=== PATIENT | male | born 1955 | race Caucasian/White ===

== ENCOUNTER 2020-08-09 17:00 | Observation (INO) | payer OTHER, SELFPAY ==
[2020-08-09] VITALS (16 sets, daily range): BP systolic 133–168; BP diastolic 75–100; PULSE 57–68; RESP 10–20; TEMP 36.6–36.9; O2SAT 93–100; BMI 33.1
--- NOTE | ~2020-08-09 | XR_ITS ---
XR chest 1V portable DATE: 08/09/2020 18:00 INDICATION: Hypertension. Episode of confusion. TECHNIQUE: 08/09/2020 portable AP chest at 1802 hours COMPARISON: None FINDINGS: Heart size is likely within normal limits considering magnification associated with AP proj ection. No pulmonary infiltrate or consolidation, pleural effusion or pulmonary vascular congestion or pneumo thorax is detected. Mild thoracic scoliosis and degenerative change. IMPRESSION: No active cardiopulmonary disease Reviewed, dictated and finalized at location A. ETRICS/GYNECOLOGY NURSE
--- NOTE | ~2020-08-09 | US_ITS ---
EXAMINATION: US carotid duplex BI EXAM DATE: 08/10/2020 12:49 INDICATION: Transient ischemic attack. Altered mental status. Hypertension. TECHNIQUE: Grayscale, color and pulsed Doppler images of the cervical carotid arteries were obtained . The degree of vessel stenosis is placed in one of the following categories: normal, <50% stenosis, 50-69% stenosis, >=70% stenosis but less than near-occlusion, near-occlusion, or occlusion. Note that percent stenosis relative to normal distal artery lumen diameter is indirectly measured from velocit y measurements as described by Harvey, et al. Radiology 2003; 229:340-346. There is no prior study fo r comparison. FINDINGS: RIGHT SIDE: Right common carotid artery peak systolic velocity (PSV in cm/s): 77 Right bulb/internal carotid artery peak systolic velocity (PSV in cm/s): 81 Right internal carotid artery end diastolic velocity (EDV in cm/s): 19 Right ICA/CCA peak systolic ratio: 1.1 Right external carotid artery peak systolic velocity (PSV in cm/s): 120 Right vertebral artery antegrade flow: yes There is no focal plaque identified. LEFT SIDE: Left common carotid artery peak systolic velocity (PSV in cm/s): 79 Left bulb/internal carotid artery peak systolic velocity (PSV in cm/s): 98 Left internal carotid artery end diastolic velocity (EDV in cm/s): 14 Left ICA/CCA peak systolic ratio: 1.2 Left external carotid artery peak systolic velocity (PSV in cm/s): 98 Left vertebral artery antegrade flow: yes There is no focal plaque identified. IMPRESSION: 1. Normal right internal carotid artery. 2. Normal left internal carotid artery. Reviewed, dictated and finalized at location B. ER REPAIRMAN
--- NOTE | ~2020-08-09 | MR_ITS ---
EXAMINATION: MR brain/brain stem wo/w con EXAM DATE: 08/10/2020 12:47 INDICATION: Transient ischemic attack. Altered mental status. Hypertension. TECHNIQUE: Magnetic resonance imaging (MRI) of the brain/brain stem obtained without contrast. Sagit mustapha T1, axial diffusion, gradient echo (T2*), T1, T2, FLAIR sequences obtained. Patient was then inj ected with 20 cc intravenous Multihance contrast. Axial and coronal postcontrast T1 weighted sequence s obtained. Correlation is made to head CT from 08/09/2020. FINDINGS: There are no areas of restricted diffusion to suggest acute infarction. There is no acute hemorrhage seen on the T2*, a hemosiderin sensitive sequence. No intraparenchymal brain mass. The ve ntricles are normal in size. There are no extra-axial collections. Flow voids are seen in the cereb ral arteries on the T2-weighted sequences consistent with their expected patency. The orbits are unr emarkable. Soft tissue is unremarkable. IMPRESSION: 1. Unremarkable brain MRI examination. Reviewed, dictated and finalized at location B. ENT DEVELOPMENT SPECIALIST
--- NOTE | ~2020-08-09 | CT_ITS ---
EXAMINATION: CT brain wo con INDICATION: Altered mental status, hypertension COMPARISON: None TECHNIQUE: Standard unenhanced head CT. The dose-length product (DLP) was 605.33 mGy-cm. The mA was a djusted according to patient size. Iterative reconstruction technique was employed. FINDINGS: There is no intracranial hemorrhage, acute infarction, or abnormal mass lesion. The ventric les are normal. There is no abnormal mass effect or midline shift. The epstein-white matter differentiat ion is normal. The basal cisterns are patent. The orbits are normal. The paranasal sinuses, mastoids and calvarium are normal. IMPRESSION: 1. No acute intracranial abnormality. Reviewed, dictated and finalized at location A. DISPATCHER
--- NOTE | 2020-08-09 17:24 | ECG_ITS ---
Measurements Intervals [place] Rate: 65 P: 45 SD: 201 QRS: -15 QRSD: 89 T: 12 QT: 382 QTc: 398 Interpretive Statements SINUS RHYTHM BORDERLINE AV CONDUCTION DELAY DELAYED PRECORDIAL R/S TRANSITION BORDERLINE ECG Electronically Signed On 08-10-2020 13:55:41 WEB ANALYST by Jono Razo D.O.
[2020-08-09 17:34] LABS: Basophils Percent Auto 0.2 % (0.2-1.2); Eosinophils Percent Auto 0.3 % (0-4.4); Hemoglobin 18.2 g/dL (14.0-18.0); Immature Granulocyte Absolute 0.02 K/mm3 (0.00-0.031); Immature Granulocyte Percent A 0.2 % (0-0.5); Lymphocytes Absolute Auto 1.25 K/mm3 (0.9-3.2); Lymphocytes Percent Auto 13.4 % (18.3-44.2); Mean Corpuscular Hemoglobin 32.3 pg (26-34); Mean Corpuscular Volume 92.4 fl (80-100); Mean Platelet Volume 9.5 fl (7.4-10.4); Monocytes Absolute Auto 0.6 K/mm3 (0.1-0.6); Monocytes Percent Auto 6.3 % (2.6-8.5); Neutrophils Absolute Auto 7.4 K/mm3 (1.3-6.7); Neutrophils Percent Auto 79.6 % (45.5-73.1); Platelet Count Result 197 k/mm3 (150-375); Red Blood Count 5.63 M/mm3 (4.6-6.20); Red Cell Distribution Width 12.7 % (11.5-14.5); White Blood Count 9.3 K/mm3 (4.5-10.0)
[2020-08-09 17:46] LABS: Anion Gap 10 mmol/L (8-16); Blood Urea Nitrogen 19 mg/dL (9-20); Calcium 9.5 mg/dL (8.4-10.2); Carbon Dioxide 32 mmol/L (22-30); Chloride 98 mmol/L (98-107); Estimated CRCL calculation 70 ml/min; Estimated Glomerular Filt Rate > 60; Glucose 116 mg/dL (75-110); Potassium 4.8 mmol/L (3.4-5.0); Sodium 140 mmol/L (137-145)
[2020-08-09 17:58] LABS: Troponin I < 0.012 ng/mL (0.000-0.034)
--- NOTE | 2020-08-09 19:17 | PC.NURSE ---
conveyor technician in room drawing patients blood at this time
--- NOTE | 2020-08-09 19:22 | ED.NEUROSD ---
HPI - Neuro Symptoms/Deficit General Chief Complaint: Neuro Symptoms/Deficit Stated Complaint: ams this morning at 1000 Time Seen by Provider: 08/09/20 18:02 Source: patient Mode of arrival: ambulatory Limitations: no limitations History of Present Illness HPI Narrative: Patient is 64 years old white male brought to the emergency room by his was telling me that patient was confused, keeps repeating the same thing again and again, keeps repeating his blood pressure again and again started at 10 AM lasted for about 4 to 5 hours then back to normal. Currently patient is asymptomatic, awake, alert oriented x4. Patient denies having similar symptoms. Patient denies any fever, chills, nausea, vomiting, diarrhea, chest pain, shortness of breath, headache, focal neuro deficit. Patient drinks alcohol daily, and his also a smoker Patient does not take aspirin, History of hypertension. Related Data Allergies Allergy/AdvReac Type Severity Reaction Status Date / Time No Known Allergies Allergy Verified 08/09/20 18:08 Review of Systems Review of Systems: Narrative: CONSTITUTIONAL: Denies fever, chills, or sweats. EYES: Denies visual changes, redness, or discharge. ENT: Denies rhinorrhea, congestion, sore throat, or otalgia. CARDIOVASCULAR: Denies chest pain, palpitations, or edema. RESPIRATORY: Denies cough or dyspnea. GASTROINTESTINAL: Denies abdominal pain, nausea, vomiting, or diarrhea. GENITOURINARY: Denies dysuria or hematuria. SKIN: Denies rash or itching. MUSCULOSKELETAL: Denies back pain, joint pain, or myalgia. NEUROLOGIC: Denies headache, numbness, or weakness. PSYCHIATRIC: Denies anxiety or depression. PMFSH Past Medical History Medical History (Updated 08/09/20 @ 19:26 by James Raymundo MD) Hypertension Social History Social History (Updated 08/09/20 @ 19:26 by James Raymundo MD) Social History: Patient smokes and drinks alcohol daily. Second hand tobacco smoke exposure: No Gender identity (if verbalized by the patient): Male Exam Narrative: Exam Narrative: General appearance: Well-developed, well-nourished Skin: Normal color Head: Normocephalic, nontraumatic Eyes: Clear conjunctiva ENT: Oropharynx normal, ears normal, nose normal Neck: Supple, nontender Chest and respiratory: Airway patent, no respiratory distress, no accessory muscle use Heart: Regular rate/rhythm Abdomen: Soft, nontender, no organomegaly, quiet bowel sounds Vascular: Normal peripheral pulses, normal capillary refill. Musculoskeletal: Normal range of motion, nontender back Neurologic: Alert and oriented ?3, COMMISSIONING SPECIALIST is normal as tested, no gross motor deficit Course Course Emergency Course: Resolved, currently asymptomatic Vital Signs Vital signs: Vital Signs Temperature 36.6 C 08/09/20 17:20 Pulse Rate 57 L 08/09/20 17:20 Respiratory Rate 14 08/09/20 17:20 Blood Pressure 168/100 H 08/09/20 17:20 Pulse Oximetry 98 08/09/20 17:20 Temperature 36.6 C 08/09/20 17:20 Pulse Rate 63 08/09/20 19:20 Respiratory Rate 17 08/09/20 19:20 Blood Pressure 133/83 08/09/20 19:20 Pulse Oximetry 97 08/09/20 19:20 MDM - Neuro Symptoms/Deficit MDM Narrative Medical decision making narrative: TIA is my concern. Labs, CT head, UA, chest x-ray ordered. Further plan to follow Differential Diagnosis Differential diagnosis: Likely transient cerebral ischemia and other (Memory disorder, alcoholism related symptoms) Lab Data Result diagrams: 08/09/20 17:27 08/09/20 17:27 Labs: Lab Results 08/09/20 08/09/20 08/09/20 Range/Units 17:27 17:27 17:27 WBC 9.3 (4.5-10.0) K/mm3 RBC 5.63 (4.6-6.20) M/
[2020-08-09 19:35] LABS: INR 0.9; Prothrombin Time 13.2 Seconds (11.1-14.7)
[2020-08-09] MEDS: ASPIRIN 81 MG CHEWABLE TABLET 324 MG PO (19:35)
[2020-08-09 19:36] LABS: Partial Thromboplastin Time 31.2 SECONDS (22.3-36.8)
[2020-08-09 20:11] LABS: Magnesium 2.5 mg/dL (1.6-2.3)
--- NOTE | 2020-08-09 20:18 | PM.IMHP ---
H&P: HPI History of Present Illness Date/Time: 08/09/20 20:18 Chief Complaint: Altered mental status Narrative: Ezequiel Howell is a 64 year old male past medical history of hypothyroidism, hypertension, and borderline diabetes, testosterone deficiency presents to the ED with complaints altered mental status. Patient was his normal state of health until he took a concoction of Wellbutrin and naltrexone which he got separately and combined. Patient was confused for 4-5 hours and his was concerned prompting him to the ED. He was aware that he was not being himself but is having difficulty explaining the specific events of the day. Of note patient drinks alcohol daily 1 beer or 1 glass of wine. He smokes 3-4 cigarettes like cigars not completely inhaling daily. Patient states he has never had any episodes like this before. He came to the ED because of his 's concern. In the ED:Labs were within normal limits, Mag was slightly elevated 2.5, hemoglobin elevated 18 secondary to testosterone. UDS was negative. Chest x-ray and CT head were negative. Patient was been for observation for neurology consult and stroke workup. Review of Systems Review of Systems: Narrative: Constitutional: No Fever, No Chills, No Night Sweats, No Fatigue, No Malaise ENT/Mouth: No Hearing Changes, No Ear Pain, No Nasal Congestion, No Sinus Pain, No Hoarseness, No sore throat, No Rhinorrhea, No Swallowing Difficulty Eyes: No Eye Pain, No Redness, No Vision Changes Cardiovascular: No Chest Pain, No Palpitations, No Dyspnea on Exertion, No Orthopnea, No Claudication, No Edema Respiratory: No Cough, No Sputum, No Wheezing, No Shortness of Breath Gastrointestinal: No Nausea, No Vomiting, No Diarrhea, No Constipation, No Abdominal Pain, No Heartburn, No Hematochezia, No Melena Genitourinary: No Dysuria, No Urinary Frequency, No Hematuria, No Urinary Incontinence, No Urgency Musculoskeletal: No Arthralgias, No Myalgias, No Joint Swelling, No Joint Stiffness, No Back Pain Skin: No Skin Lesions, No Pruritis, No Hair Changes Neuro: No Weakness, No Numbness, No Paresthesias, No Loss of Consciousness, No Syncope, No Dizziness, No Headache. Endorse some confusion and not being himself which has resolved. Psych: No Anxiety/Panic, No Depression, No Insomnia Heme: No Bruising, No Bleeding Lymph: No Adenopathy Endocrine: No Polyuria, No Polydipsia, No Temperature Intolerance [facility] Past Medical History Medical History (Updated 08/10/20 @ 03:34 by Fabiola Moctezuma DO) Borderline diabetes Hypertension Hypothyroidism Obesity (BMI 30.0-34.9) Testosterone deficiency Surgical History Surgical History (Updated 08/10/20 @ 03:29 by Fabiola Moctezuma DO) S/P ACL repair Family History Family History (Updated 08/10/20 @ 03:31 by Fabiola Moctezuma DO) Father Multiple myeloma Lung cancer Mother No problems noted. Social History Social History (Updated 08/10/20 @ 03:31 by Fabiola Moctezuma DO) Social History: Patient smokes and drinks alcohol daily. He states he drinks only 1 glass daily. Smokes but not completely inhales 3-4 cigarettes daily. 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
--- NOTE | 2020-08-09 20:35 | PC.NURSE ---
This patient, Ezequiel Howell, was admitted to 3 [facility] Surg Room 317-01. Patient/family oriented to hospital policies and general routines including ID bracelet, bed and alarms, visiting hours, pain management, procedures, bathroom and other care routines, personal items, smoking policy, room service/diet, and visiting hours. Information on how to activate the Rapid Response Team has been discussed. Patient/Family are encouraged to report perceived risks to care and to ask questions if they do not understand what they are told or what they should do.
[2020-08-09 20:53] LABS: Amphetamine Screen Urine Negative (Negative); Barbiturate Screen Urine Negative (Negative); Benzodiazepines Screen Urine Negative (Negative); Cannabinoid Screen Urine Negative (Negative); Cocaine Screen Urine Negative (Negative); Methadone Screen Urine Negative (Negative); Opiate Screen Urine Negative (Negative); Phencyclidine Screen Urine Negative (Negative)
[2020-08-10] VITALS: PULSE 61
[2020-08-10 04:00] VITALS: PULSE 58
[2020-08-10 05:44] VITALS: BP 143/86; PULSE 60; RESP 20; TEMP 36.1; O2SAT 100
[2020-08-10 06:16] LABS: Hemoglobin A1C 5.4 % (<5.7)
[2020-08-10 06:21] LABS: Cholesterol 214 mg/dL (0-200); HDL Direct 32 mg/dL; Triglycerides 165 mg/dL (<150)
[2020-08-10 06:32] LABS: LDL Cholesterol Direct 162 mg/dL
[2020-08-10 08:00] VITALS: PULSE 62
[2020-08-10] MEDS: THYROID 60 MG TABLET PO (08:43)
[2020-08-10] MEDS: ASPIRIN 81 MG CHEWABLE TABLET PO (08:43)
[2020-08-10 08:48] VITALS: BP 124/71
--- NOTE | 2020-08-10 10:10 | WPDNEURCNPN ---
Consult date: 08/10/20 HPI: Ezequiel Howell is a 64 year old male admitted to the hospital for the complaints of change in the mental status reportedly he was in his normal state of health up until when he took a core concoction of Wellbutrin and naltrexone separately and combine he was reportedly confused for 4 to 5 5 words his became concerned and brought him to the hospital he was having some difficulties explaining the specific events of the day with drinks alcohol daily 1 beer or glass of wine he smokes 3 to 4 cigarettes like cigars but not inhaling completely but he had never had such an episode in the past in the emergency room [facility] Past Medical History Medical History (Updated 08/10/20 @ 03:34 by Fabiola Moctezuma DO) Borderline diabetes Hypertension Hypothyroidism Obesity (BMI 30.0-34.9) Testosterone deficiency Surgical History Surgical History (Updated 08/10/20 @ 03:29 by Fabiola Moctezuma DO) S/P ACL repair Family History Family History (Updated 08/10/20 @ 03:31 by Fabiola Moctezuma DO) Father Multiple myeloma Lung cancer Mother No problems noted. Social History Social History (Updated 08/10/20 @ 03:31 by Fabiola Moctezuma DO) Social History: Patient smokes and drinks alcohol daily. He states he drinks only 1 glass daily. Smokes but not completely inhales 3-4 cigarettes daily. 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 Thyroid 60 mg DAILY 08/09/20 08/09/20 History bupropion HCl 100 mg PO DAILY 08/09/20 08/09/20 History metformin 500 mg DAILY 08/09/20 08/09/20 History metoprolol tartrate 25 mg HS 08/09/20 08/09/20 History naltrexone 9 mg PO DAILY 08/09/20 08/09/20 History testosterone cypionate 200 mg IM WEEKLY 08/09/20 08/09/20 History Allergies Allergy/AdvReac Type Severity Reaction Status Date / Time No Known Allergies Allergy Verified 08/10/20 01:39 Vital Signs Vital Signs - 24 hr 08/09/20 17:20 08/09/20 18:03 08/09/20 18:04 Temperature 36.6 C Pulse Rate 57 L 64 65 Respiratory Rate 14 14 15 Blood Pressure 168/100 H 156/91 H Pulse Oximetry 98 98 99 08/09/20 18:05 08/09/20 18:15 08/09/20 18:19 Temperature Pulse Rate 65 63 65 Respiratory Rate 14 20 10 L Blood Pressure 141/92 H Pulse Oximetry 97 100 08/09/20 18:30 08/09/20 18:31 08/09/20 18:45 Temperature Pulse Rate 63 65 63 Respiratory Rate 15 19 14 Blood Pressure 138/93 H Pulse Oximetry 93 94 08/09/20 18:46 08/09/20 19:20 08/09/20 20:16 Temperature 36.8 C Pulse Rate 64 63 68 Respiratory Rate 18 17 13 Blood Pressure 138/89 133/83 145/87 H Pulse Oximetry 97 100 08/09/20 20:59 08/09/20 21:06 08/09/20 21:54 Temperature 36.9 C 36.9 C Pulse Rate 61 61 62 Respiratory Rate 20 20 Blood Pressure 135/75 135/75 Pulse Oximetry 98 98 08/09/20 22:05 08/10/20 00:00 08/10/20 04:00 Temperature Pulse Rate 61 58 L Respiratory Rate Blood Pressure Pulse Oximetry 98 08/10/20 05:44 08/10/20 08:48 Temperature 36.1 C L Pulse Rate 60 Respiratory Rate 20 Blood Pressure 143/86 H 124/71 Pulse Oximetry 100 Results Labs CBC & Chem 7: 08/09/20 17:27 08/09/20 17:27 Labs: Short CBC 08/09/20 Range/Units 17:27 WBC 9.3 (4.5-10.0) K/mm3 Hgb 18.2 H (14.0-18.0) g/dL Hct 52.0 (42.0-52.0) % Plt Count 197 (150-375) k/mm3 BMP 1
[2020-08-10] MEDS: LORazepam INJ (*CRX) 2 MG/ML VIAL 1 MG IV PUSH (11:47)
--- NOTE | 2020-08-10 11:56 | WPDNEURCNPN ---
Assessment and Plan Assessment and plan (1) Acute encephalopathy: Code(s): G93.40 - Encephalopathy, unspecified Status: Acute Additional Plan Evaluation documented negative CT scan of the head with negative x-ray of the chest Ariane size 165 with cholesterol 214, Akin only 32 TSH reflex 3.360 we will obtain the EEG and MRI of the brain in addition to the echocardiogram and carotid studies Consult date: 08/10/20 Time Seen: 11:15 HPI: Ezequiel Howell is a 64 year old male admitted to the hospital with the complaints of change in the mental status. Patient carries the diagnosis of 1. Hypothyroidism 2. Hypertension 3. Borderline diabetes mellitus 4. Testosterone deficiency. Reportedly he was in normal state of health up until he took a concoction of Wellbutrin and naltrexone which he got separately and combine he was completely confused for about 5 hours and his was concerned who brought him to the emergency room he was not being himself but was having difficulties in explaining the specific event of the day he drinks 1 alcohol a day he smokes 3 to 4 cigarettes like cigars not completely inhaling daily he has never had such an episode in the past. While in the emergency room his evaluation revealed slightly elevated magnesium of 2.5 but hemoglobin was 18 chest x-ray and CT scan of the head were negative. Thatch before patient has ongoing history of hypertension hypothyroidism and borderline diabetes mellitus he has undergone ACL repair in the past. He is currently smoking Review of Systems Review of Systems: All systems reviewed & are unremarkable except as noted in HPI and below PMFSH Past Medical History Medical History Borderline diabetes Hypertension Hypothyroidism Obesity (BMI 30.0-34.9) Testosterone deficiency Surgical History Surgical History S/P ACL repair Family History Family History Father Multiple myeloma Lung cancer Mother No problems noted. Social History Social History Social History: Patient smokes and drinks alcohol daily. He states he drinks only 1 glass daily. Smokes but not completely inhales 3-4 cigarettes daily. 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 Thyroid 60 mg DAILY 08/09/20 08/09/20 History bupropion HCl 100 mg PO DAILY 08/09/20 08/09/20 History metformin 500 mg DAILY 08/09/20 08/09/20 History metoprolol tartrate 25 mg HS 08/09/20 08/09/20 History naltrexone 9 mg PO DAILY 08/09/20 08/09/20 History testosterone cypionate 200 mg IM WEEKLY 08/09/20 08/09/20 History Allergies Allergy/AdvReac Type Severity Reaction Status Date / Time No Known Allergies Allergy Verified 08/10/20 01:39 Vital Signs Vital Signs - 24 hr 08/09/20 17:20 08/09/20 18:03 08/09/20 18:04 Temperature 36.6 C Pulse Rate 57 L 64 65 Respiratory Rate 14 14 15 Blood Pressure 168/100 H 156/91 H Pulse Oximetry 98 98 99 08/09/20 18:05 08/09/20 18:15 08/09/20 18:19 Temperature Pulse Rate 65 63 65 Respiratory Rate 14 20 10 L Blood Pressure 141/92 H Pulse Oximetry 97 100 08/09/20 18:30 08/09/20 18:31 08/09/20 18:45 Temperature Pulse Rate 63 65 63 Respiratory Rate 15 19 14 Blood Pressure 138/93 H Pulse
[2020-08-10 14:00] VITALS: BP 148/89; PULSE 61; RESP 18; TEMP 36.4; O2SAT 99
--- NOTE | 2020-08-10 14:04 | PM.DS ---
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 tartrate or the sustained release once daily Blood pressure well controlled today the without medication (4) Borderline diabetes: Code(s): R73.03 - Prediabetes Status: Inactive Assessment and Plan: May continue metformin. A1c only 5.4 (5) Altered mental status: Code(s): R41.82 - Altered mental status, unspecified Status: Acute Assessment and Plan: From discussion with patient and his and review of his x-ray findings and laboratory findings I believe that he suffered from transient global amnesia. No obvious precipitating factor and prognosis is good with negative MR scan. No restrictions in activity needed. As above did recommend he not take the Wellbutrin and naltrexone DS: Summary Hospital Course Hospital Course: 64-year-old hypertensive glucose intolerant male admitted with acute change in mental status with lapse in memory and elevated blood pressure. His related that he repetitively asked the same questions but with his pressure persistently slightly elevated a came to the hospital for evaluation and by the time he arrived here he was alert oriented x4 with no focal findings. Drug screen was negative, TSH normal, CT of the brain and MR of the brain were negative. It was felt he probably had transient global amnesia and will follow-up with neurology within 3-4 weeks Time Spent with Patient Time attestation: Total time spent providing and/or coordinating discharge services:35 minutes Exam Narrative: Exam Narrative: Condition on discharge Blood pressure 124/70 pulse 62 regular afebrile Pupil equal reactive to light sclera anicteric Neck supple no adenopathy Lungs clear CV regular rate rhythm no murmurs Abdomen soft nontender no masses Extremities without edema good distal pulses Neuro alert oriented x4 with no focal deficits Stable and able to be discharged home with no restrictions DS: Data Data Completed and Pending Labs on day of discharge: Labs from last 24 hours 08/10/20 08/10/20 08/10/20 10:12 05:46 05:46 WBC RBC Hgb Hct MCV MCH MCHC RDW Plt Count MPV Immature Gran % (Auto) Neut % (Auto) Lymph % (Auto) Elbert % (Auto) Eos % (Auto) Baso % (Auto) Lymph # (Auto) Elbert # (Auto) Eos # (Auto) Baso # (Auto) Abs Immat Gran (auto) Absolute Neuts (auto) Absolute Nucleated RBC Nucleated RBC % PT INR APTT Sodium Potassium Chloride Carbon Dioxide Anion Gap BUN Creatinine Estim Creat Clear Calc Estimated GFR Glucose Hemoglobin A1c 5.4 Calcium Magnesium Troponin I Triglycerides 165 H Cholesterol 214 H LDL Cholesterol Direct 162 HDL Direct 32 TSH (Reflex) 3.360 Urine Opiates Screen Urine Methadone Screen Ur Barbiturates Screen Ur Phencyclidine Scrn Ur Amphetamine Screen U Benzodiazepines Scrn Urine Cocaine Screen U Cannabinoids Screen Methyl Alcohol Level 08/09/20 08/09/20 08/09/20 20:2
[2020-08-15 15:52] LABS: Methyl Alcohol Level None Detected (None Detected)
== END 2020-08-10 15:35 | disposition home or self-care (01) ==
LOC: ANHED 18:31 → ANH3MEDSUR 20:58
PROVIDERS: Admitting Provider Student in an Organized Health Care Education/Training Program; Emergency Provider Emergency Medicine; Visit Provider Internal Medicine
DX: R41.82 Altered mental status, unspecified (principal); E03.9 Hypothyroidism, unspecified; I10 Essential (primary) hypertension; R73.03 Prediabetes; E66.9 Obesity, unspecified; Z68.33 Body mass index [BMI] 33.0-33.9, adult; F17.210 Nicotine dependence, cigarettes, uncomplicated; E34.9 Endocrine disorder, unspecified; Z79.899 Other long term (current) drug therapy; R47.89 Other speech disturbances; Z79.82 Long term (current) use of aspirin
CPT/HCPCS: 36415; 70450; 70553; 71045; 80048; 80061; 80307; 83036; 83735; 84443; 84484; 84600; 85025; 85610; 85730; 93005; 93880; 96374; 99285; A9270; A9577; G0378; J2060